=== PATIENT | female | born 1975 | race Caucasian/White ===

== ENCOUNTER → 2021-08-09 | Outpatient (CLI) | payer MEDICAID ==
[2021-08-09 09:29] LABS: POTASSIUM 4.4 MMOL/L (3.6-5.0)
[2021-08-09 09:30] LABS: BILIRUBIN,TOTAL 0.4 MG/DL (0.1-1.0); CALCIUM 9.2 MG/DL (8.5-10.1); CREATININE SERUM 0.77 MG/DL (0.60-1.30); TOTAL PROTEIN 7.4 GM/DL (6.4-8.2)
[2021-08-09 09:31] LABS: ALBUMIN 4.5 GM/DL (3.2-4.5)
== END ==
LOC: LAB FS 08:12
PROVIDERS: ATTEND Registered Nurse Emergency
DX: Z00.00 Encounter for general adult medical examination without abnormal findings (principal); R20.2 Paresthesia of skin
CPT/HCPCS: 36415; 80053; 80061; 82607; 82746; 84443

== ENCOUNTER → 2021-08-29 | Outpatient (CLI) | payer MEDICAID | LOC: LABNPT 15:05 | PROVIDERS: ATTEND Registered Nurse Emergency | DX: L02.214 Cutaneous abscess of groin (principal) | CPT/HCPCS: 87070; 87077; 87186; 87205 ==

== ENCOUNTER 2021-10-29 13:23 | Emergency (ER) | payer MEDICAID ==
[~2021-10-29] VITALS: Ht 162.6 cm; Wt 81.6 kg
--- NOTE | 2021-10-29 13:53 | ED General ---
General Chief Complaint: Dizziness/Syncope Stated Complaint: DIZZINESS Source of Information: Patient Exam Limitations: No Limitations (NAYELI TOBIAS APRN) History of Present Illness Date Seen by Provider: Oct 29, 2021 Time Seen by Provider: 13:51 Initial Comments To ER with dizziness and tightness in her chest. She does not feel anxious but she states that her chest does feel anxious. Symptoms began this morning upon awakening. She just moved here and works for [employer]. She thought this might be hypertension or hypoglycemia related. She left work to go eat lunch and after eating she still felt the same. She went to urgent care who did not accept her insurance and wanted $125 to be seen. She subsequently came here to the emergency room. Timing/Duration: 1-2 Days Severity: Moderate Associated Systoms: Denies Symptoms (NAYELI TOBIAS APRN) Allergies and Home Medications Patient Home Medication List Home Medication List Reviewed: Yes (NAYELI TOBIAS APRN) Review of Systems Review of Systems Constitutional: see HPI EENTM: see HPI Respiratory: no symptoms reported Cardiovascular: no symptoms reported Genitourinary: no symptoms reported Musculoskeletal: no symptoms reported Skin: no symptoms reported Psychiatric/Neurological: No Symptoms Reported Hematologic/Lymphatic: No Symptoms Reported Immunological/Allergic: no symptoms reported (NAYELI TOBIAS APRN) Physical Exam Vital Signs Vital Signs - First Documented 10/29/21 10/29/21 13:37 15:01 Temp 36.9 Pulse 93 Resp 19 B/P (MAP) 143/94 (110) Pulse Ox 100 O2 Delivery Room Air (MARYCRUZ ESPINOSA MD) Vital Signs Capillary Refill : (NAYELI TOBIAS APRN) Height, Weight, BMI Height: '" Weight: lbs. oz. kg; BMI Method: General Appearance: No Apparent Distress, WD/WN Eyes: Bilateral Eye Normal Inspection, Bilateral Eye PERRL, Bilateral Eye EOMI HEENT: PERRL/EOMI, TMs Normal Neck: Full Range of Motion, Normal Inspection Respiratory: No Accessory Muscle Use, No Respiratory Distress Cardiovascular: Regular Rate, Rhythm, Normal Peripheral Pulses Gastrointestinal: Normal Bowel Sounds, Non Tender, Soft Extremity: Normal Capillary Refill, Normal Inspection Neurologic/Psychiatric: Alert, Oriented x3 Skin: Normal Color, Warm/Dry (NAYELI TOBIAS APRN) Progress/Results/Core Measures Suspected Sepsis SIRS Temperature: Pulse: Respiratory Rate: Laboratory Tests 10/29/21 13:47: White Blood Count 7.2 Blood Pressure / Mean: Laboratory Tests 10/29/21 13:47: Creatinine 0.76, INR Comment 0.9, Platelet Count 222, Total Bilirubin 0.5 (NAYELI TOBIAS APRN) Results/Orders Lab Results Laboratory Tests Test 10/29/21 13:47 Range/Units White Blood Count 7.2 4.3-11.0 10^3/uL Red Blood Count 4.79 3.80-5.11 10^6/uL Hemoglobin 15.2 11.5-16.0 g/dL Hematocrit 45 35-52 % Mean Corpuscular Volume 94 80-99 fL Mean Corpuscular Hemoglobin 32 25-34 pg Mean Corpuscular Hemoglobin Concent 34 32-36 g/dL Red Cell Distribution Width 12.2 10.0-14.5 % Platelet Count 222 130-400 10^3/uL Mean Platelet Volume 10.5 9.0-12.2 fL Immature Granulocyte % (Auto) 0 % Neutrophils (%) (Auto) 68 42-75 % Lymphocytes (%) (Auto) 25 12-44 % Monocytes (%) (Auto) 5 0-12 % Eosinophils (%) (Auto) 1 0-10 % Basophils (%) (Auto) 1 0-10 % Neutrophils # (Auto) 4.9 1.8-7.8 10^3/uL Lymphocytes # (Auto) 1.8 1.0-4.0 10^3/uL Monocytes # (Auto) 0.4 0.0-1.0 10^3/uL Eosinophils # (Auto) 0.1 0.0-0.3 10^3/uL Basophils # (Auto) 0.0 0.0-0.1 10^3/uL Immature Granulocyte # (Auto) 0.0 0.0-0.1 10^3/uL Prothrombin Time 12.4 12.2-14.7 SEC INR Comment 0.9 0.8-1.4 Activated Partial Thromboplast Time 30 24-35 SEC D-Dimer 0.30 0.00-0.49 UG/ML Sodium Level 139 135-145 MMOL/L Potassium Level 3.6 3.6-5.0 MMOL/L Chloride Level 109 H 98-107 MMOL/L Carbon Dioxide Level 22 21-32 MMOL/L Anion Gap 8 5-14 MMOL/L Blood Urea Nitrogen 15 7-18 MG/DL Creatinine 0.76 0.60-1.30 MG/DL Estimat Glomerular Filtration Rate 99 BUN/Creatinine Ratio 20 Glucose Level 122 H 70-105 MG/DL Calcium Level 8.8 8.5-10.1 MG/DL Corrected Calcium 8.7 8.5-10.1 MG/DL Magnesium Level 2.0 1.6-2.4 MG/DL Total Bilirubin 0.5 0.1-1.0 MG/DL Aspartate Amino Transf (AST/SGOT) 13 5-34 U/L Alanine Aminotransferase (ALT/SGPT) 12 0-55 U/L Alkaline Phosphatase 76 40-136 U/L Myoglobin 20.7 10.0-92.0 NG/ML Troponin I < 0.028 <0.028 NG/ML B-Type Natriuretic Peptide < 10.0 <100.0 PG/ML Total Protein 7.5 6.4-8.2 GM/DL Albumin 4.1 3.2-4.5 GM/DL (MARYCRUZ ESPINOSA MD) Vital Signs/I&O 10/29/21 10/29/21 13:37 15:01 Temp 36.9 Pulse 93 80 Resp 19 17 B/P (MAP) 143/94 (110) 131/74 Pulse Ox 100 O2 Delivery Room Air Room Air (MARYCRUZ ESPINOSA MD) Vital Signs/I&O Capillary Refill : (NAYELI TOBIAS APRN) Departure Communication (Admissions) [id number]-she is now tearful, states that her boss is calling to figure out when she will be back to work. She just got a new job and she is liking it. She is new to the area. Despite no history of anxiety and reporting that she does not feel anxious she certainly appears anxious. I did offer her something to help relax and she declined. (NAYELI TOBIAS APRN) Impression Primary Impression: Stress Disposition: 01 HOME, SELF-CARE Condition: Stable Departure-Patient Inst. Decision time for Depature: 14:55 (NAYELI TOBIAS APRN) Referrals: MALENA KRAUS MD (PCP/Family) Primary Care Physician DEMETRIS LAND V DO Patient Instructions: Stress Add. Discharge Instructions: 1. Return to ER for any concerns 2. Follow-up with your doctor next week. All discharge instructions reviewed with patient and/or family. Voiced understanding. ATTENDING PHYSICIAN NOTE: I was physically present as attending physician in the emergency department during the care of this patient, but I was not directly involved in the decision making or delivery of care for this patient. (MARYCRUZ ESPINOSA MD) NAYELI TOBIAS APRN Oct 29, 2021 13:53 MARYCRUZ ESPINOSA MD Oct 29, 2021 19:15
[2021-10-29 13:55] LABS: BASOPHILS % (AUTO) 1 % (0-10); EOSINOPHILS # (AUTO) 0.1 10^3/uL (0.0-0.3); EOSINOPHILS % (AUTO) 1 % (0-10); HEMATOCRIT 45 % (35-52); HEMOGLOBIN 15.2 g/dL (11.5-16.0); LYMPHOCYTES # (AUTO) 1.8 10^3/uL (1.0-4.0); LYMPHOCYTES % (AUTO) 25 % (12-44); MEAN CORPUSCULAR HEMOGLOBIN 32 pg (25-34); MEAN CORPUSCULAR HGB CONC 34 g/dL (32-36); MEAN CORPUSCULAR VOLUME 94 fL (80-99); MEAN PLATELET VOLUME 10.5 fL (9.0-12.2); MONOCYTES # (AUTO) 0.4 10^3/uL (0.0-1.0); MONOCYTES % (AUTO) 5 % (0-12); NEUTROPHILS # (AUTO) 4.9 10^3/uL (1.8-7.8); NEUTROPHILS % (AUTO) 68 % (42-75); PLATELET COUNT 222 10^3/uL (130-400); WHITE BLOOD COUNT 7.2 10^3/uL (4.3-11.0)
[2021-10-29 14:14] LABS: INR 0.9 (0.8-1.4); PROTHROMBIN TIME PATIENT 12.4 SEC (12.2-14.7)
--- NOTE | 2021-10-29 14:18 | Diagnostic Imaging Report ---
EXAMINATION: Portable erect AP chest at 02:08 p.m. INDICATION: Chest pain. COMPARISON: None. FINDINGS: The heart size is within normal limits. The lungs are clear. There is no evidence for failure, pneumonia or for a pleural effusion. The mediastinum is not widened. The osseous structures are intact. IMPRESSION: There is no evidence for active disease. Dictated by: Dictated on workstation # [id number]
[2021-10-29 14:43] LABS: ALBUMIN 4.1 GM/DL (3.2-4.5); BILIRUBIN,TOTAL 0.5 MG/DL (0.1-1.0); CALCIUM 8.8 MG/DL (8.5-10.1); CREATININE SERUM 0.76 MG/DL (0.60-1.30); POTASSIUM 3.6 MMOL/L (3.6-5.0); TOTAL PROTEIN 7.5 GM/DL (6.4-8.2)
[2021-10-29 15:01] VITALS: BP 131/74
== END 2021-10-29 15:01 | disposition home or self-care (01) ==
LOC: EDUNIT# 13:23 → ER 13:24
DX: F43.9 Reaction to severe stress, unspecified (principal)
CPT/HCPCS: 36415; 71045; 80053; 83735; 83874; 83880; 84484; 85025; 85379; 85610; 85730; 93041

== ENCOUNTER 2021-11-05 12:27 | Emergency (ER) | payer MEDICAID ==
[2021-11-05] MEDS ORDERED: TRM50T PO (15:01)
[2021-11-05] MEDS ORDERED: ONDA4TAB11 PO (15:01)
== END 2021-11-05 12:45 | disposition left against medical advice (07) ==
LOC: EDUNIT# 12:27 → ER 12:29
DX: M54.9 Dorsalgia, unspecified (principal); R51.9 Headache, unspecified; R11.2 Nausea with vomiting, unspecified

== ENCOUNTER 2021-11-05 13:40 | Emergency (ER) | payer MEDICAID ==
[~2021-11-05] VITALS: Ht 162 cm; Wt 87.3 kg
[2021-11-05 13:57] VITALS: BP 126/88
[2021-11-05] MEDS ORDERED: FAMOTIDINE 20MG/2ML IV (PEPCID) IVP ONE (14:00)
[2021-11-05] MEDS ORDERED: ONDANSETRON 4 MG/2 ML (SDV) Z0FRAN IVP ONE (14:00)
[2021-11-05] MEDS ORDERED: NS IV 1000 ML 1,000 ML IV SCH (14:00)
[2021-11-05] MEDS ORDERED: KETOROLAC 30 MG/ML VIAL IVP ONE (14:00)
--- NOTE | 2021-11-05 14:24 | ED Back Pain ---
General Chief Complaint: Head/Cervical Problems Stated Complaint: GEN PAIN; HEADACHE Source of Information: Patient Exam Limitations: No Limitations History of Present Illness Date Seen by Provider: Nov 05, 2021 Time Seen by Provider: 13:50 Initial Comments Patient is a [id number]-year-old female who presents with bilateral flank pain, nausea and vomiting awaking her up this morning. Patient reports diffuse back pain which is not reproducible. She denies urinary frequency urgency dysuria and hematuria. No history of kidney stones. Pain is constant and especially with moving forward. She denies fever chills or sweats. No cough, sore throat, chest pain or shortness of breath. Patient did test positive for influenza A 6 weeks ago. No medications or therapies prior to ED arrival. Previous tubal ligation. Timing/Duration: 4-6 Hours Severity: Moderate Pain/Injury Location: Other Radiation: Other Method of Injury: Other Modifying Factors: Improves With Other Associated Symptoms: other Allergies and Home Medications Allergies Coded Allergies: doxycycline (Verified Allergy, Unknown, 11/05/21) Patient Home Medication List Home Medication List Reviewed: Yes Review of Systems Constitutional: see HPI EENTM: see HPI Respiratory: see HPI Cardiovascular: see HPI Gastrointestinal: see HPI Genitourinary: see HPI Musculoskeletal: see HPI Skin: see HPI Psychiatric/Neurological: See HPI All Other Systems Reviewed Negative Unless Noted: Yes Past Awimmky-Wqpcvb-Kzizvu Hx Patient Social History Tobacco Use?: Yes Tobacco type used: Cigarettes Smoking Status: Current Everyday Smoker Use of E-Cig and/or Vaping dev: No Substance use?: No Alcohol Use?: No Pt feels they are or have been: No Physical Exam Vital Signs Vital Signs - First Documented 11/05/21 13:57 Temp 37.0 Pulse 101 Resp 18 B/P (MAP) 126/88 (101) Pulse Ox 98 O2 Delivery Room Air Capillary Refill : Height, Weight, BMI Height: '" Weight: lbs. oz. kg; 33.00 BMI Method: General Appearance: Anxious, Mild Distress HEENT: PERRL/EOMI, Normal ENT Inspection, Pharynx Normal Neck: Full Range of Motion, Normal Inspection, Non Tender, Supple Cardiovascular: Regular Rate, Rhythm, No Edema Respiratory: Chest Non Tender, Lungs Clear Gastrointestinal: Non Tender, Soft Back: No CVA Tenderness, No Vertebral Tenderness Neurologic/Psychiatric: Alert, Oriented x3, Normal Mood/Affect Skin: Normal Color Lymphatic: No Adenopathy Progress/Results/Core Measures Results/Orders Lab Results Laboratory Tests Test 11/05/21 13:55 11/05/21 14:00 Range/Units White Blood Count 7.7 4.3-11.0 10^3/uL Red Blood Count 4.59 3.80-5.11 10^6/uL Hemoglobin 14.4 11.5-16.0 g/dL Hematocrit 43 35-52 % Mean Corpuscular Volume 94 80-99 fL Mean Corpuscular Hemoglobin 31 25-34 pg Mean Corpuscular Hemoglobin Concent 34 32-36 g/dL Red Cell Distribution Width 12.5 10.0-14.5 % Platelet Count 221 130-400 10^3/uL Mean Platelet Volume 10.6 9.0-12.2 fL Immature Granulocyte % (Auto) 1 % Neutrophils (%) (Auto) 86 H 42-75 % Lymphocytes (%) (Auto) 4 L 12-44 % Monocytes (%) (Auto) 8 0-12 % Eosinophils (%) (Auto) 1 0-10 % Basophils (%) (Auto) 0 0-10 % Neutrophils # (Auto) 6.6 1.8-7.8 X 10^3 Lymphocytes # (Auto) 0.3 L 1.0-4.0 X 10^3 Monocytes # (Auto) 0.6 0.0-1.0 X 10^3 Eosinophils # (Auto) 0.0 0.0-0.3 10^3/uL Basophils # (Auto) 0.0 0.0-0.1 10^3/uL Immature Granulocyte # (Auto) 0.1 0.0-0.1 10^3/uL Neutrophils % (Manual) 76 % Lymphocytes % (Manual) 4 % Monocytes % (Manual) 5 % Eosinophils % (Manual) 1 % Basophils % (Manual) 0 % Myelocytes % 1 % Band Neutrophils 12 % Atypical Lymphocytes 1 % Platelet Estimate NORMAL Blood Morphology Comment NORMAL Sodium Level 141 135-145 MMOL/L Potassium Level 4.0 3.6-5.0 MMOL/L Chloride Level 106 98-107 MMOL/L Carbon Dioxide Level 21 21-32 MMOL/L Anion Gap 14 5-14 MMOL/L Blood Urea Nitrogen 15 7-18 MG/DL Creatinine 0.67 0.60-1.30 MG/DL Estimat Glomerular Filtration Rate 110 BUN/Creatinine Ratio 22 Glucose Level 93 70-105 MG/DL Calcium Level 9.1 8.5-10.1 MG/DL Corrected Calcium 8.7 8.5-10.1 MG/DL Total Bilirubin 0.4 0.1-1.0 MG/DL Aspartate Amino Transf (AST/SGOT) 14 5-34 U/L Alanine Aminotransferase (ALT/SGPT) 11 0-55 U/L Alkaline Phosphatase 86 40-136 U/L Total Protein 7.5 6.4-8.2 GM/DL Albumin 4.5 3.2-4.5 GM/DL Influenza Type A Antigen NEGATIVE NEGATIVE Influenza Type B Antigen NEGATIVE NEGATIVE Urine Color YELLOW Urine Clarity CLEAR Urine pH 7.0 5-9 Urine Specific [place] 1.020 1.016-1.022 Urine Protein NEGATIVE NEGATIVE Urine Glucose (UA) NEGATIVE NEGATIVE Urine Ketones TRACE H NEGATIVE Urine Nitrite NEGATIVE NEGATIVE Urine Bilirubin NEGATIVE NEGATIVE Urine Urobilinogen 0.2 < = 1.0 MG/DL Urine Leukocyte Esterase NEGATIVE NEGATIVE Urine RBC (Auto) NEGATIVE NEGATIVE Urine RBC NONE /HPF Urine WBC 0-2 /HPF Urine Squamous Epithelial Cells 10-25 H /HPF Urine Crystals NONE /LPF Urine Bacteria TRACE /HPF Urine Casts NONE /LPF Urine Mucus MODERATE H /LPF Urine Culture Indicated NO My Orders Orders - SHERRY MONCADA DO Cbc With Automated Diff (11/05/21 13:56) Comprehensive Metabolic Panel (11/05/21 13:56) Urinalysis (11/05/21 13:56) Covid 19 Inhouse Test (11/05/21 13:56) Isolation Central Supply Req (11/05/21 13:56) Ondansetron Injection (Zofran Injectio (11/05/21 14:00) Ketorolac Injection (Toradol Injection) (11/05/21 14:00) Ns Iv 1000 Ml (Sodium Chloride 0.9%) (11/05/21 14:00) Famotidine Injection (Pepcid Injection) (11/05/21 14:00) Influenza A & B Antigens (11/05/21 14:02) Manual Differential (11/05/21 13:55) Medications Given in ED Current Medications Medications Dose Ordered Sig/K[place]winder Route Start Time Stop Time Status Last Admin Dose Admin Famotidine 20 mg ONCE ONCE IVP 11/05/21 14:00 11/05/21 14:02 DC 11/05/21 14:07 20 MG Ketorolac Tromethamine 30 mg ONCE ONCE IVP 11/05/21 14:00 11/05/21 14:02 DC 11/05/21 14:07 30 MG Ondansetron HCl 4 mg ONCE ONCE IVP 11/05/21 14:00 11/05/21 14:02 DC 11/05/21 14:07 4 MG Vital Signs/I&O 11/05/21 13:57 Temp 37.0 Pulse 101 Resp 18 B/P (MAP) 126/88 (101) Pulse Ox 98 O2 Delivery Room Air Blood Pressure Mean: 101 Departure Communication (Admissions) Symptoms significantly improved with treatment. Patient anxious with diffuse myalgias and body aches. Covid testing pending. Recommendations are supportive care watchful waiting and PCP follow-up. Return precautions reviewed. Patient verbalizes understanding and agreement with discharge instructions prior to departure Impression Primary Impression: Myalgia Disposition: 01 HOME, SELF-CARE Condition: Stable Departure-Patient Inst. Decision time for Depature: 14:58 Referrals: MALENA KRAUS MD (PCP/Family) Primary Care Physician Patient Instructions: Acute Pain, Adult (DC) Add. Discharge Instructions: You were evaluated in the emergency department for acute flank pain and nausea. The cause of your symptoms has not been determined but may be related to Covid or another ailment. Your Covid test result is pending. Please take 600 mg of ibuprofen 3 times daily for pain, tramadol for additional relief and Zofran as needed for nausea. Drink clear liquids only for the next 6 to 12 hours then gradually increase to a bland diet as tolerated. Follow-up with your PCP in 2 to 3 days for reevaluation. Return to the ED if new or worsening symptoms. All discharge instructions reviewed with patient and/or family. Voiced understanding. Scripts Ondansetron (Ondansetron Odt) 4 Mg Tab.rapdis 4 MG PO Q6H, #10 TAB Prov: SHERRY MONCADA DO 11/05/21 Tramadol HCl (Tramadol HCl) 50 Mg Tablet 50 MG PO Q6H PRN for PAIN for 3 Days, #16 TAB 0 Refills Prov: SHERRY MONCADA DO 11/05/21 SHERRY MONCADA DO Nov 05, 2021 14:24
[2021-11-05 14:25] LABS: BASOPHILS % (AUTO) 0 % (0-10); EOSINOPHILS % (AUTO) 1 % (0-10); HEMATOCRIT 43 % (35-52); HEMOGLOBIN 14.4 g/dL (11.5-16.0); LYMPHOCYTES # (AUTO) 0.3 X 10^3 (1.0-4.0); LYMPHOCYTES % (AUTO) 4 % (12-44); MEAN CORPUSCULAR HEMOGLOBIN 31 pg (25-34); MEAN CORPUSCULAR HGB CONC 34 g/dL (32-36); MEAN CORPUSCULAR VOLUME 94 fL (80-99); MEAN PLATELET VOLUME 10.6 fL (9.0-12.2); MONOCYTES # (AUTO) 0.6 X 10^3 (0.0-1.0); MONOCYTES % (AUTO) 8 % (0-12); NEUTROPHILS # (AUTO) 6.6 X 10^3 (1.8-7.8); NEUTROPHILS % (AUTO) 86 % (42-75); PLATELET COUNT 221 10^3/uL (130-400); WHITE BLOOD COUNT 7.7 10^3/uL (4.3-11.0)
[2021-11-05 14:29] LABS: BILIRUBIN,TOTAL 0.4 MG/DL (0.1-1.0); CALCIUM 9.1 MG/DL (8.5-10.1); CREATININE SERUM 0.67 MG/DL (0.60-1.30); TOTAL PROTEIN 7.5 GM/DL (6.4-8.2)
[2021-11-05 14:30] LABS: ALBUMIN 4.5 GM/DL (3.2-4.5)
[2021-11-05 14:33] LABS: COLOR,URINE YELLOW
[2021-11-05 14:34] LABS: BACTERIA,URINE TRACE /HPF; BILIRUBIN,URINE NEGATIVE (NEGATIVE); CLARITY,URINE CLEAR; GLUCOSE, URINE (UA) NEGATIVE (NEGATIVE); KETONES,URINE TRACE (NEGATIVE); LEUKOCYTE ESTERASE ,URINE NEGATIVE (NEGATIVE); NITRITE,URINE NEGATIVE (NEGATIVE); PROTEIN,URINE NEGATIVE (NEGATIVE); WBC,URINE 0-2 /HPF
[2021-11-05 14:40] LABS: ATYPICAL LYMPHOCYTES 1 %; BAND NEUTROPHILS 12 %; BASOPHILS % (MANUAL) 0 %; EOSINOPHILS % (MANUAL) 1 %; LYMPHOCYTES % (MANUAL) 4 %; MONOCYTES % (MANUAL) 5 %; MYELOCYTES % 1 %; NEUTROPHILS % (MANUAL) 76 %; PLATELET ESTIMATE NORMAL; RBC MORPH NORMAL
[2021-11-05] MEDS ORDERED: ONDA4TAB11 PO (15:01)
[2021-11-05] MEDS ORDERED: TRM50T PO (15:01)
== END 2021-11-05 15:30 | disposition home or self-care (01) ==
LOC: EDUNIT# 13:40 → ER FS 13:41
DX: U07.1 COVID-19 (principal); M79.10 Myalgia, unspecified site; F17.210 Nicotine dependence, cigarettes, uncomplicated
CPT/HCPCS: 36415; 80053; 81000; 85007; 85027; 87635; 87804

== ENCOUNTER 2021-11-07 00:58 | Emergency (ER) | payer MEDICAID ==
[~2021-11-07] VITALS: Ht 162 cm; Wt 81.0 kg
[~2021-11-07 00:58] MED LIST: ONDA4TAB11 PO; TRM50T PO
[2021-11-07] MEDS ORDERED: LORazepam INJ 2 MG/ML (ATIVAN) VIAL IVP STA (01:22)
[2021-11-07] MEDS ORDERED: KETOROLAC 30 MG/ML VIAL IVP STA (01:22)
[2021-11-07] MEDS ORDERED: ORPHENADRINE 60 MG/2 ML (NORFLEX) AMP (ED ONLY) IVP STA (01:22)
--- NOTE | 2021-11-07 01:29 | ED General ---
General Chief Complaint: Back Problems Stated Complaint: BACK PAIN/COVID+ Source of Information: Patient, Old Records History of Present Illness Date Seen by Provider: Nov 07, 2021 Time Seen by Provider: 01:01 Initial Comments 46-year-old female presenting with complaints of pain in her back wrapping around her chest. She states it feels like her muscles are "in labor". She has had chest pains and tightness since last week when she was seen in the [place] ED on and then this week on Nov 05 in ED. She had a cardiac work- up on the first visit in [place] and had a general work-up including swab for influenza and COVID on the . Her Covid result came back positive and she was notified of those results on Thursday. She has continued to have pain in her back and chest wall. She denies having any significant cough. She has been very anxious and she is hyperventilating on arrival to the emergency department. She is sobbing and tearful saying that she feels like she is going to and that she cannot tolerate the pain. She had been prescribed tramadol and Zofran when she was seen on the . She states that she has been taking those medicines but they were not helping. She did drive herself to the ED tonight but states that she could call somebody to get a ride home. Timing/Duration: 1 Week Severity: Severe Modifying Factors: worse with Movement Associated Systoms: Chest Pain (diffuse pains in her back, ribs, chest wall), Cough (mild); No Diaphoresis, No Fever/Chills; Loss of Appetite, Malaise; No N ausea/Vomiting, No Rash, No Seizure; Shortness of Air; No Syncope; Weakness Allergies and Home Medications Allergies Coded Allergies: doxycycline (Verified Allergy, Unknown, 11/05/21) Patient Home Medication List Home Medication List Reviewed: Yes Hydroxyzine HCl (Hydroxyzine HCl) 25 Mg Tablet, 25 MG PO TID PRN for ANXIETY Prescribed by: ANTIONE PALOMINO on 11/07/21315 Ibuprofen (Ibuprofen) 800 Mg Tablet, 800 MG PO Q8H PRN for PAIN Prescribed by: ANTIONE PALOMINO on 11/07/21315 Methocarbamol (Methocarbamol) 750 Mg Tablet, 750 MG PO Q6H PRN for back pain/muscle spasm Prescribed by: ANTIONE PALOMINO on 11/07/21 0316 Ondansetron (Ondansetron Odt) 4 Mg Tab.rapdis, 4 MG PO Q6H Prescribed by: SHERRY MONCADA on 11/05/21 1501 Tramadol HCl (Tramadol HCl) 50 Mg Tablet, 50 MG PO Q6H PRN for PAIN Prescribed by: SHERRY MONCADA on 11/05/21 1501 Review of Systems Review of Systems Constitutional: chills, malaise, weakness EENTM: nose congestion Respiratory: see HPI, cough (mild) Cardiovascular: see HPI Gastrointestinal: see HPI Genitourinary: No dysuria Musculoskeletal: muscle pain ("feels like my muscles in back and chest are in labor"), neck pain (chest and back pain radiates to neck) Skin: No change in color, No rash Psychiatric/Neurological: Anxiety, Weakness (general) Hematologic/Lymphatic: Denies Blood Clots Past Tkayqul-Mupine-Nkcbmw Hx Patient Social History Tobacco Use?: Yes Tobacco type used: Cigarettes Smoking Status: Current Everyday Smoker Use of E-Cig and/or Vaping dev: No Substance use?: No Alcohol Use?: No Pt feels they are or have been: No Past Medical History Surgeries: Yes Orthopedic (Lumbar spine) Respiratory: No Cardiac: No Neurological: No Genitourinary: No Gastrointestinal: No Musculoskeletal: No Endocrine: No HEENT: No Cancer: No Psychosocial: No Physical Exam Vital Signs Vital Signs - First Documented 11/07/21 11/07/21 01:04 02:00 Temp 36.4 Pulse 91 Resp 18 B/P (MAP) 135/83 (100) Pulse Ox 96 O2 Delivery Room Air Capillary Refill : Height, Weight, BMI Height: '" Weight: lbs. oz. kg; 33.00 BMI Method: General Appearance: WD/WN, Anxious, Other (hyperventilating and tearful) HEENT: PERRL/EOMI, Pharynx Normal, Moist Mucous Membranes Neck: Full Range of Motion, Normal Inspection, Non Tender, Supple Respiratory: Lungs Clear, Normal Breath Sounds, No Accessory Muscle Use, No Respiratory Distress; No Rhonci, No Stridor, No Wheezing; Other (tender to palpation of chest wall) Cardiovascular: Regular Rate, Rhythm, No Murmur, Normal Peripheral Pulses Gastrointestinal: Normal Bowel Sounds, No Pulsatile Mass, Non Tender, Soft Back: No CVA Tenderness, No Vertebral Tenderness Extremity: Normal Capillary Refill, Normal Inspection, No Pedal Edema Neurologic/Psychiatric: Alert, Oriented x3, Other (anxious and tearful) Skin: Normal Color, Warm/Dry Progress/Results/Core Measures Suspected Sepsis SIRS Temperature: Pulse: Respiratory Rate: Laboratory Tests 11/07/21 01:33: White Blood Count 2.4L Blood Pressure / Mean: Laboratory Tests 11/07/21 01:33: Creatinine 0.76, INR Comment 0.9, Platelet Count 192, Total Bilirubin 0.2 Results/Orders Lab Results Laboratory Tests Test 11/07/21 01:33 Range/Units White Blood Count 2.4 L 4.3-11.0 10^3/uL Red Blood Count 4.69 3.80-5.11 10^6/uL Hemoglobin 14.8 11.5-16.0 g/dL Hematocrit 43 35-52 % Mean Corpuscular Volume 92 80-99 fL Mean Corpuscular Hemoglobin 32 25-34 pg Mean Corpuscular Hemoglobin Concent 34 32-36 g/dL Red Cell Distribution Width 12.5 10.0-14.5 % Platelet Count 192 130-400 10^3/uL Mean Platelet Volume 11.3 9.0-12.2 fL Immature Granulocyte % (Auto) 0 % Neutrophils (%) (Auto) 53 42-75 % Lymphocytes (%) (Auto) 33 12-44 % Monocytes (%) (Auto) 13 H 0-12 % Eosinophils (%) (Auto) 0 0-10 % Basophils (%) (Auto) 0 0-10 % Neutrophils # (Auto) 1.3 L 1.8-7.8 X 10^3 Lymphocytes # (Auto) 0.8 L 1.0-4.0 X 10^3 Monocytes # (Auto) 0.3 0.0-1.0 X 10^3 Eosinophils # (Auto) 0.0 0.0-0.3 10^3/uL Basophils # (Auto) 0.0 0.0-0.1 10^3/uL Immature Granulocyte # (Auto) 0.0 0.0-0.1 10^3/uL Prothrombin Time 12.3 12.2-14.7 SEC INR Comment 0.9 0.8-1.4 Activated Partial Thromboplast Time 31 24-35 SEC D-Dimer 0.23 0.00-0.49 UG/ML Urine Color YELLOW Urine Clarity CLOUDY H Urine pH 6.0 5-9 Urine Specific [place] >=1.030 1.016-1.022 Urine Protein NEGATIVE NEGATIVE Urine Glucose (UA) NEGATIVE NEGATIVE Urine Ketones NEGATIVE NEGATIVE Urine Nitrite NEGATIVE NEGATIVE Urine Bilirubin NEGATIVE NEGATIVE Urine Urobilinogen 0.2 < = 1.0 MG/DL Urine Leukocyte Esterase NEGATIVE NEGATIVE Urine RBC (Auto) NEGATIVE NEGATIVE Urine RBC NONE /HPF Urine WBC NONE /HPF Urine Squamous Epithelial Cells NONE /HPF Urine Crystals NONE /LPF Urine Bacteria NEGATIVE /HPF Urine Casts NONE /LPF Urine Mucus NEGATIVE /LPF Urine Culture Indicated NO Sodium Level 137 135-145 MMOL/L Potassium Level 3.7 3.6-5.0 MMOL/L Chloride Level 102 98-107 MMOL/L Carbon Dioxide Level 21 21-32 MMOL/L Anion Gap 14 5-14 MMOL/L Blood Urea Nitrogen 13 7-18 MG/DL Creatinine 0.76 0.60-1.30 MG/DL Estimat Glomerular Filtration Rate 99 BUN/Creatinine Ratio 17 Glucose Level 110 H 70-105 MG/DL Calcium Level 9.1 8.5-10.1 MG/DL Corrected Calcium 8.8 8.5-10.1 MG/DL Total Bilirubin 0.2 0.1-1.0 MG/DL Aspartate Amino Transf (AST/SGOT) 24 5-34 U/L Alanine Aminotransferase (ALT/SGPT) 19 0-55 U/L Alkaline Phosphatase 85 40-136 U/L Troponin I < 0.30 <0.30 NG/ML C-Reactive Protein 0.30 <0.50 MG/DL Total Protein 7.5 6.4-8.2 GM/DL Albumin 4.4 3.2-4.5 GM/DL Urine Opiates Screen NEGATIVE NEGATIVE Urine Oxycodone Screen NEGATIVE NEGATIVE Urine Methadone Screen NEGATIVE NEGATIVE Urine Propoxyphene Screen NEGATIVE NEGATIVE Urine Barbiturates Screen NEGATIVE NEGATIVE Ur Tricyclic Antidepressants Screen NEGATIVE NEGATIVE Urine Phencyclidine Screen NEGATIVE NEGATIVE Urine Amphetamines Screen NEGATIVE NEGATIVE Urine Methamphetamines Screen NEGATIVE NEGATIVE Urine Benzodiazepines Screen NEGATIVE NEGATIVE Urine Cocaine Screen NEGATIVE NEGATIVE Urine Cannabinoids Screen POSITIVE H NEGATIVE My Orders Orders - ANTIONE PALOMINO MD Monitor-Rhythm Ecg Trace Only (11/07/21 01:20) Ed Iv/Invasive Line Start (11/07/21 01:20) Cbc With Automated Diff (11/07/21 01:20) Comprehensive Metabolic Panel (11/07/21 01:20) Crp Fs (11/07/21 01:20) Troponin I Fs (11/07/21 01:20) Protime With Inr (11/07/21 01:20) Partial Thromboplastin Time (11/07/21 01:20) Ns Iv 1000 Ml (Sodium Chloride 0.9%) (11/07/21 01:30) Ua Culture If Indicated (11/07/21 01:20) Drug Screen Stat (Urine) (11/07/21 01:20) Ketorolac Injection (Toradol Injection) (11/07/21 01:22) Lorazepam Injection (Ativan Injection) (11/07/21:22) Orphenadrine Inj (Ed Only) (Norflex Inje (11/07/21 01:22) Fibrin Degradation Products (11/07/21 01:20) Ns Iv 1000 Ml (Sodium Chloride 0.9%) (11/07/21 02:59) Ondansetron Injection (Zofran Injectio (11/07/21 02:59) Vital Signs/I&O 11/07/21 11/07/21 11/07/21 11/07/21 01:04 02:00 03:00 03:50 Temp 36.4 Pulse 91 65 60 63 Resp 18 17 15 B/P (MAP) 135/83 (100) 113/60 95/63 103/53 Pulse Ox 96 96 95 95 O2 Delivery Room Air Room Air Room Air Room Air Capillary Refill : Progress Note #1: Progress Note Upon review of her 2 previous visits of the last week she had similar symptoms of being tearful and anxious. She tested positive for Covid on her most recent visit on the . She was notified of those results on the . Now she presents overnight because of increased pain and she is hyperventilating and sobbing. She states that she cannot take the pain anymore and that the pain medicine she was prescribed was not helping. Will repeat testing to see if there is any change in her electrolytes are elevation in her D-dimer to indicate that there is any new process going on. Her vital signs look good with oxygen saturation of 98 to 100% on room air. Her heart rate is in the 88 to 95 bpm range. She has a normal blood pressure. Will order Toradol for chest pain since it had seemed to help Thursday. IVF for hydration. Ativan for anxiety and hyperventilating. Norflex for muscle spasm. Progress Note #2: Progress Note Labs show her white blood cell count is slightly low at 2.4, consistent with viral infection. Her chemistry panel appears stable without acute significant abnormality. She does have elevated specific gravity on her urine to indicate dehydration. Her coags and D-dimer are normal and not elevated. She has not improved symptoms with treatment in the ED. She is able to rest and not have the pain in her chest any longer. Reviewed results with the patient and she was requesting something different for pain for home. Advised that we could try to add an anti-inflammatory medicine and muscle relaxer similar to what we did here. Encourage fluids and hydration as well. Will repeat another bolus of normal saline and she reported feeling a little nauseated and woozy so we will give a dose of Zofran. Anticipate discharge to home after this infuses. Patient states that she has a friend named Caprice that she could call to get a ride. She had told me this before I wrote for any of her medications to be given here in the ED. When I told her that she would not be able to drive herself home she stated that if she could not get a hold of her friend Caprice that she would sleep in her car. Progress Note #3: Progress Note Patient continued to be improved after repeat fluids and zofran. she was much more calm for the rest of her stay as well. Will discharge on hydroxyzine for anxiety. Methocarbamol 750 mg po q6h prn chest wall pain/muscle spasms, Ibuprofen 800 mg po q8h prn pain/inflammation. Encouraged to drink more fluids and try to remain better hydrated to help with her muscle pains. Follow up with clinic for continued concerns. Departure Impression Primary Impression: Myalgia Additional Impressions: COVID-19 virus infection Anxiety Dehydration Disposition: 01 HOME, SELF-CARE Condition: Improved Departure-Patient Inst. Decision time for Depature: 03:16 Referrals: MALENA KRAUS MD (PCP/Family) Primary Care Physician Patient Instructions: Anxiety, Adult ED, COVID-19 ED, Dehydration, Adult ED, Muscle and Bone Pain (DC) Add. Discharge Instructions: Stay well-hydrated and get plenty of fluids for helping flush out inflammation. Try to get plenty of rest to help your body recover and heal. Use the muscle relaxer and anti-inflammatory medicine to help with the muscle pain in your chest and back. The dehydration and virus itself can contribute to increased pain in the muscles so staying hydrated and using the anti-inflammatories will help to counteract this. If continued symptoms are not improving check back with the clinic and your regular provider. All discharge instructions reviewed with patient and/or family. Voiced understanding. Scripts Hydroxyzine HCl (Hydroxyzine HCl) 25 Mg Tablet 25 MG PO TID PRN for ANXIETY for 7 Days, #20 TAB 0 Refills Prov: ANTIONE PALOMINO MD 11/07/21 Ibuprofen (Ibuprofen) 800 Mg Tablet 800 MG PO Q8H PRN for PAIN for 10 Days, #30 TAB 0 Refills Prov: ANTIONE PALOMINO MD 11/07/21 Methocarbamol (Methocarbamol) 750 Mg Tablet 750 MG PO Q6H PRN for back pain/muscle spasm for 7 Days, #28 TAB 0 Refills Prov: ANTIONE PALOMINO MD 11/07/21 ANTIONE PALOMINO MD Nov 07, 2021 01:29
[2021-11-07] MEDS ORDERED: NS IV 1000 ML 1,000 ML IV SCH (01:30)
[2021-11-07 01:56] LABS: WHITE BLOOD COUNT 2.4 10^3/uL (4.3-11.0)
[2021-11-07 01:57] LABS: BASOPHILS % (AUTO) 0 % (0-10); EOSINOPHILS % (AUTO) 0 % (0-10); HEMATOCRIT 43 % (35-52); HEMOGLOBIN 14.8 g/dL (11.5-16.0); LYMPHOCYTES # (AUTO) 0.8 X 10^3 (1.0-4.0); LYMPHOCYTES % (AUTO) 33 % (12-44); MEAN CORPUSCULAR HEMOGLOBIN 32 pg (25-34); MEAN CORPUSCULAR HGB CONC 34 g/dL (32-36); MEAN CORPUSCULAR VOLUME 92 fL (80-99); MEAN PLATELET VOLUME 11.3 fL (9.0-12.2); MONOCYTES # (AUTO) 0.3 X 10^3 (0.0-1.0); MONOCYTES % (AUTO) 13 % (0-12); NEUTROPHILS # (AUTO) 1.3 X 10^3 (1.8-7.8); NEUTROPHILS % (AUTO) 53 % (42-75); PLATELET COUNT 192 10^3/uL (130-400)
[2021-11-07 01:59] LABS: BACTERIA,URINE NEGATIVE /HPF; BILIRUBIN,URINE NEGATIVE (NEGATIVE); CLARITY,URINE CLOUDY; COLOR,URINE YELLOW; GLUCOSE, URINE (UA) NEGATIVE (NEGATIVE); KETONES,URINE NEGATIVE (NEGATIVE); LEUKOCYTE ESTERASE ,URINE NEGATIVE (NEGATIVE); NITRITE,URINE NEGATIVE (NEGATIVE); PROTEIN,URINE NEGATIVE (NEGATIVE)
[2021-11-07 02:06] LABS: AMPHETAMINE SCREEN, URINE NEGATIVE (NEGATIVE); BARBITURATE SCREEN URINE NEGATIVE (NEGATIVE); BENZODIAZEPINES SCREEN URINE NEGATIVE (NEGATIVE); CANNABINOID SCREEN, URINE POSITIVE (NEGATIVE); COCAINE SCREEN URINE NEGATIVE (NEGATIVE); METHADONE STAT NEGATIVE (NEGATIVE); METHAMPHETAMINE SCREEN URINE S NEGATIVE (NEGATIVE); OPIATE SCREEN URINE NEGATIVE (NEGATIVE); OXYCODONE STAT NEGATIVE (NEGATIVE); PROPOXYPHENE STAT NEGATIVE (NEGATIVE); TRICYCLIC ANTIDEPRESSANTS SCRE NEGATIVE (NEGATIVE)
[2021-11-07 02:20] LABS: ALANINE AMINOTRANSFERASE 19 U/L (0-55); ALKALINE PHOSPHATASE 85 U/L (40-136); BILIRUBIN,TOTAL 0.2 MG/DL (0.1-1.0); BUN/CREATININE RATIO 17; CALCIUM 9.1 MG/DL (8.5-10.1); CARBON DIOXIDE 21 MMOL/L (21-32); CHLORIDE 102 MMOL/L (98-107); CREATININE SERUM 0.76 MG/DL (0.60-1.30); GFR ESTIMATED 99; GLUCOSE 110 MG/DL (70-105); POTASSIUM 3.7 MMOL/L (3.6-5.0); SODIUM 137 MMOL/L (135-145); TOTAL PROTEIN 7.5 GM/DL (6.4-8.2)
[2021-11-07 02:21] LABS: ALBUMIN 4.4 GM/DL (3.2-4.5)
[2021-11-07 02:45] LABS: FIBRIN DEGRADATION PRODUCTS 0.23 UG/ML (0.00-0.49); INR 0.9 (0.8-1.4); PROTHROMBIN TIME PATIENT 12.3 SEC (12.2-14.7)
[2021-11-07] MEDS ORDERED: ONDANSETRON 4 MG/2 ML (SDV) Z0FRAN IVP STA (02:59)
[2021-11-07] MEDS ORDERED: NS IV 1000 ML 1,000 ML IV STA (02:59)
[2021-11-07] MEDS ORDERED: HYDR-700 PO (03:16)
[2021-11-07] MEDS ORDERED: IBUP-1780 PO (03:16)
[2021-11-07] MEDS ORDERED: METH-732 PO (03:16)
[2021-11-07 03:50] VITALS: BP 103/53
== END 2021-11-07 03:55 | disposition home or self-care (01) ==
LOC: EDUNIT# 00:58 → ER FS 01:01
DX: U07.1 COVID-19 (principal); M79.10 Myalgia, unspecified site; F41.9 Anxiety disorder, unspecified; E86.0 Dehydration; R06.4 Hyperventilation; F17.210 Nicotine dependence, cigarettes, uncomplicated
CPT/HCPCS: 36415; 80053; 80306; 81000; 84484; 85025; 85379; 85610; 85730; 86141; 93041

== ENCOUNTER → 2021-12-13 | Outpatient (CLI) | payer MEDICAID ==
[~2021-12-13] MED LIST changes: +HYDR-700 PO; +IBUP-1780 PO; +METH-732 PO
[2021-12-13 15:03] LABS: BASOPHILS # (AUTO) 0.1 10^3/uL (0.0-0.1); BASOPHILS % (AUTO) 1 % (0-10); EOSINOPHILS # (AUTO) 0.1 10^3/uL (0.0-0.3); EOSINOPHILS % (AUTO) 2 % (0-10); HEMATOCRIT 42 % (35-52); HEMOGLOBIN 13.9 g/dL (11.5-16.0); LYMPHOCYTES # (AUTO) 1.5 10^3/uL (1.0-4.0); LYMPHOCYTES % (AUTO) 26 % (12-44); MEAN CORPUSCULAR HEMOGLOBIN 31 pg (25-34); MEAN CORPUSCULAR HGB CONC 33 g/dL (32-36); MEAN CORPUSCULAR VOLUME 95 fL (80-99); MEAN PLATELET VOLUME 10.5 fL (9.0-12.2); MONOCYTES # (AUTO) 0.4 10^3/uL (0.0-1.0); MONOCYTES % (AUTO) 6 % (0-12); NEUTROPHILS # (AUTO) 3.9 10^3/uL (1.8-7.8); NEUTROPHILS % (AUTO) 66 % (42-75); PLATELET COUNT 221 10^3/uL (130-400)
[2021-12-13 15:25] LABS: ALBUMIN 4.1 GM/DL (3.2-4.5); BILIRUBIN,TOTAL 0.3 MG/DL (0.1-1.0); CALCIUM 8.5 MG/DL (8.5-10.1); CREATININE SERUM 0.67 MG/DL (0.60-1.30); POTASSIUM 4.7 MMOL/L (3.6-5.0)
== END ==
LOC: LAB FS 14:41
PROVIDERS: ATTEND Registered Nurse Emergency
DX: R50.9 Fever, unspecified (principal); R73.9 Hyperglycemia, unspecified
CPT/HCPCS: 36415; 80053; 83036; 85025

== ENCOUNTER 2022-05-12 03:23 | Emergency (ER) | payer MEDICAID ==
[2022-05-12] MEDS ORDERED: FAMOTIDINE 20 MG (PEPCID) TABLET PO STA (03:29)
[2022-05-12] MEDS ORDERED: LORazepam 0.5 MG (ATIVAN) TABLET PO STA (03:29)
[2022-05-12] MEDS ORDERED: LIDOCAINE 2% VISCOUS 15 ML UDC PO ONE (03:30)
[2022-05-12] MEDS ORDERED: ASPIRIN 81 MG CHEW (CHILDREN'S ASA) PO ONE (03:30)
[2022-05-12] MEDS ORDERED: ANTACID SUSP 30 ML UDC (MYLANTA) PO ONE (03:30)
--- NOTE | 2022-05-12 03:32 | ED Chest Pain ---
General Stated Complaint: CHEST PAIN Source: patient Exam Limitations: no limitations History of Present Illness Date Seen by Provider: May 12, 2022 Time Seen by Provider: 03:27 Initial Comments 47-year-old female with no pertinent past medical history coming in due to chest pain going through to her back. The pain started over an hour prior to arrival, is moderate, constant, sharp. Has had pain like this before, but denies any cardiac history. Denies any prior history of DVT or PE, does not take any hormones, no leg swelling or pain, no hemoptysis or cough, no shortness of breath, no recent surgery, no fever, abdominal pain, weakness, numbness, or any other concerns. Has not taken any medicines for it. Nothing seems to make it better or worse. Allergies and Home Medications Allergies Coded Allergies: doxycycline (Verified Allergy, Unknown, 11/05/21) Patient Home Medication List Home Medication List Reviewed: Yes Hydroxyzine HCl (Hydroxyzine HCl) 25 Mg Tablet, 25 MG PO TID PRN for ANXIETY Prescribed by: ANTIONE PALOMINO on 11/07/21 0316 Ibuprofen (Ibuprofen) 800 Mg Tablet, 800 MG PO Q8H PRN for PAIN Prescribed by: ANTIONE PALOMINO on 11/07/21 0316 Methocarbamol (Methocarbamol) 750 Mg Tablet, 750 MG PO Q6H PRN for back pain/muscle spasm Prescribed by: ANTIONE PALOMINO on 11/07/21 0316 Ondansetron (Ondansetron Odt) 4 Mg Tab.rapdis, 4 MG PO Q6H Prescribed by: SHERRY MONCADA on 11/05/21 1501 Tramadol HCl (Tramadol HCl) 50 Mg Tablet, 50 MG PO Q6H PRN for PAIN Prescribed by: SHERRY MONCADA on 11/05/21 1501 Review of Systems Review of Systems Constitutional: No fever EENTM: No Blurred Vision Respiratory: Denies Cough Cardiovascular: Chest Pain Gastrointestinal: Denies Abdominal Pain Genitourinary: No Symptoms Reported Musculoskeletal: no symptoms reported Skin: no symptoms reported Psychiatric/Neurological: No Symptoms Reported Endocrine: No Symptoms Reported Hematologic/Lymphatic: No Symptoms Reported All Other Systems Reviewed Negative Unless Noted: Yes Past Hormrux-Ggcmqs-Ciwnzt Hx Patient Social History Tobacco Use?: Yes Tobacco type used: Cigarettes Substance use?: Yes Substance type: Marijuana Past Medical History Surgeries: Yes Orthopedic Respiratory: No Cardiac: No Neurological: No Genitourinary: No Gastrointestinal: No Musculoskeletal: No Endocrine: No HEENT: No Cancer: No Psychosocial: No Physical Exam Vital Signs Vital Signs - First Documented 05/12/22 03:26 Temp 36.5 Pulse 97 Resp 20 B/P (MAP) 150/97 (114) Pulse Ox 100 O2 Delivery Room Air Capillary Refill : Height, Weight, BMI Height: '" Weight: lbs. oz. kg; 30.00 BMI Method: General Appearance: WD/WN, Anxious HEENT: PERRL/EOMI, Normal ENT Inspection, Pharynx Normal Neck: Full Range of Motion, Normal Inspection, Non Tender, Supple Respiratory: Chest Non Tender, Lungs Clear, Normal Breath Sounds, No Accessory Muscle Use, No Respiratory Distress Cardiovascular: Regular Rate, Rhythm, No Edema, Normal Peripheral Pulses Gastrointestinal: Normal Bowel Sounds, Non Tender, Soft; No Distended, No Guarding Extremity: Normal Capillary Refill, Normal Inspection, Normal Range of Motion, Non Tender, No Calf Tenderness, No Pedal Edema Neurologic/Psychiatric: Alert, No Motor/Sensory Deficits, Normal Mood/Affect Skin: Normal Color, Warm/Dry Lymphatic: No Adenopathy Progress/Results/Core Measures Results/Orders Lab Results Laboratory Tests Test 05/12/22 03:35 Range/Units White Blood Count 7.3 4.3-11.0 10^3/uL Red Blood Count 4.63 3.80-5.11 10^6/uL Hemoglobin 14.8 11.5-16.0 g/dL Hematocrit 43 35-52 % Mean Corpuscular Volume 93 80-99 fL Mean Corpuscular Hemoglobin 32 25-34 pg Mean Corpuscular Hemoglobin Concent 34 32-36 g/dL Red Cell Distribution Width 12.5 10.0-14.5 % Platelet Count 287 130-400 10^3/uL Mean Platelet Volume 10.3 9.0-12.2 fL Immature Granulocyte % (Auto) 0 % Neutrophils (%) (Auto) 60 42-75 % Lymphocytes (%) (Auto) 30 12-44 % Monocytes (%) (Auto) 7 0-12 % Eosinophils (%) (Auto) 1 0-10 % Basophils (%) (Auto) 1 0-10 % Neutrophils # (Auto) 4.3 1.8-7.8 10^3/uL Lymphocytes # (Auto) 2.2 1.0-4.0 10^3/uL Monocytes # (Auto) 0.5 0.0-1.0 10^3/uL Eosinophils # (Auto) 0.1 0.0-0.3 10^3/uL Basophils # (Auto) 0.1 0.0-0.1 10^3/uL Immature Granulocyte # (Auto) 0.0 0.0-0.1 10^3/uL Prothrombin Time 12.0 L 12.2-14.7 SEC INR Comment 0.9 0.8-1.4 Activated Partial Thromboplast Time 28 24-35 SEC Sodium Level 141 135-145 MMOL/L Potassium Level 3.6 3.6-5.0 MMOL/L Chloride Level 106 98-107 MMOL/L Carbon Dioxide Level 21 21-32 MMOL/L Anion Gap 14 5-14 MMOL/L Blood Urea Nitrogen 18 7-18 MG/DL Creatinine 0.71 0.60-1.30 MG/DL Estimat Glomerular Filtration Rate 107 BUN/Creatinine Ratio 25 Glucose Level 96 70-105 MG/DL Calcium Level 9.3 8.5-10.1 MG/DL Corrected Calcium 9.0 8.5-10.1 MG/DL Magnesium Level 2.0 1.6-2.4 MG/DL Total Bilirubin 0.4 0.1-1.0 MG/DL Aspartate Amino Transf (AST/SGOT) 14 5-34 U/L Alanine Aminotransferase (ALT/SGPT) 14 0-55 U/L Alkaline Phosphatase 104 40-136 U/L Troponin I < 0.30 <0.30 NG/ML Total Protein 7.7 6.4-8.2 GM/DL Albumin 4.4 3.2-4.5 GM/DL My Orders Orders - ANNE MARIE ESCOBAR MD Cbc With Automated Diff (05/12/22 03:29) Magnesium (05/12/22 03:29) Chest 1 View Ap/Pa Only (05/12/22 03:29) Ekg Tracing (05/12/22 03:29) Comprehensive Metabolic Panel (05/12/22 03:29) Protime With Inr (05/12/22 03:29) Partial Thromboplastin Time (05/12/22 03:29) O2 (05/12/22 03:29) Monitor-Rhythm Ecg Trace Only (05/12/22 03:29) Aspirin Chewable Tablet (Baby Aspirin Ch (05/12/22 03:30) Ed Iv/Invasive Line Start (05/12/22 03:29) Troponin I Fs (05/12/22 03:29) Lidocaine 2% Viscous 15 Ml (Xylocaine Vi (05/12/22 03:30) Famotidine Tablet (Pepcid Tablet) (05/12/22 03:29) Antacid Suspension (Mylanta Suspension (05/12/22 03:30) Lorazepam Tablet (Ativan Tablet) (05/12/22 03:29) Medications Given in ED Current Medications Medications Dose Ordered Sig/[place] Route Start Time Stop Time Status Last Admin Dose Admin Al Hydrox/Mg Hydrox/Simethicone 30 ml ONCE ONCE PO 05/12/22 03:30 05/12/22 03:32 DC 05/12/22 03:43 30 ML Aspirin 324 mg ONCE ONCE PO 05/12/22 03:30 05/12/22 03:32 DC 05/12/22 03:43 324 MG Lidocaine HCl 15 ml ONCE ONCE PO 05/12/22 03:30 05/12/22 03:32 DC 05/12/22 03:43 15 ML Vital Signs/I&O 05/12/22 03:26 Temp 36.5 Pulse 97 Resp 20 B/P (MAP) 150/97 (114) Pulse Ox 100 O2 Delivery Room Air Progress Progress Note : Progress Note 47-year-old female with above history coming in due to chest pain. ABCs were intact and vitals were stable on presentation. Physical exam reassuring with no focal abnormalities. EKG with no acute ischemic changes. Chest x-ray my interpretation with no acute abnormality. An IV was placed and basic labs were obtained including cardiac biomarkers. These were normal. The patient was given a GI cocktail as well as Ativan as she seemed to have a significant amount of anxiety. Symptoms significantly improved. She is otherwise low risk per [place] criteria for PE and is PERC negative. I believe she is stable for discharge with outpatient follow-up. She was sent home with strict return precautions. Initial ECG Impression Date: May 12, 2022 Initial ECG Impression Time: 03:34 Initial ECG Rate: 87 Initial ECG Rhythm: Normal Sinus Comment Narrow QRS, normal axis, no significant ST changes or T wave abnormalities Diagnostic Imaging Diagonstic Imaging: Xray Plain Films/CT/US/NM/MRI: chest Departure Impression Primary Impression: Chest pain Qualified Codes: R07.82 - Intercostal pain Disposition: 01 HOME, SELF-CARE Condition: Stable Departure-Patient Inst. Decision time for Depature: 04:20 Referrals: MALENA KRAUS MD (PCP/Family) Primary Care Physician MODESTA CLINTON JR, MD Patient Instructions: Chest Pain That Is Not Caused by the Heart (DC) Add. Discharge Instructions: Your work-up is reassuring and everything looks very good. Your labs and your vitals look great. This is likely another cause of chest pain and discomfort that is not deadly. I would recommend taking ibuprofen or Tylenol for discomfort at home. You can also try things such as a heating pad. If things are not improving you can also call the meat molder number listed in this paperwork, Dr. Clinton, and schedule an appointment for an evaluation in the future. Work/School Note: Work Release Form Date Seen in the Emergency Department: May 12, 2022 Return to Work: May 13, 2022 Restrictions: No Restrictions ANNE MARIE ESCOBAR MD May 12, 2022 03:32
[2022-05-12 03:43] LABS: BASOPHILS # (AUTO) 0.1 10^3/uL (0.0-0.1); BASOPHILS % (AUTO) 1 % (0-10); EOSINOPHILS # (AUTO) 0.1 10^3/uL (0.0-0.3); EOSINOPHILS % (AUTO) 1 % (0-10); HEMATOCRIT 43 % (35-52); HEMOGLOBIN 14.8 g/dL (11.5-16.0); LYMPHOCYTES # (AUTO) 2.2 10^3/uL (1.0-4.0); LYMPHOCYTES % (AUTO) 30 % (12-44); MEAN CORPUSCULAR HEMOGLOBIN 32 pg (25-34); MEAN CORPUSCULAR HGB CONC 34 g/dL (32-36); MEAN CORPUSCULAR VOLUME 93 fL (80-99); MEAN PLATELET VOLUME 10.3 fL (9.0-12.2); MONOCYTES # (AUTO) 0.5 10^3/uL (0.0-1.0); MONOCYTES % (AUTO) 7 % (0-12); NEUTROPHILS # (AUTO) 4.3 10^3/uL (1.8-7.8); NEUTROPHILS % (AUTO) 60 % (42-75); PLATELET COUNT 287 10^3/uL (130-400); WHITE BLOOD COUNT 7.3 10^3/uL (4.3-11.0)
[2022-05-12 03:52] LABS: INR 0.9 (0.8-1.4)
[2022-05-12 04:03] LABS: ALBUMIN 4.4 GM/DL (3.2-4.5); BILIRUBIN,TOTAL 0.4 MG/DL (0.1-1.0); CALCIUM 9.3 MG/DL (8.5-10.1); CREATININE SERUM 0.71 MG/DL (0.60-1.30); POTASSIUM 3.6 MMOL/L (3.6-5.0); TOTAL PROTEIN 7.7 GM/DL (6.4-8.2)
[2022-05-12 04:13] VITALS: BP 140/94
--- NOTE | 2022-05-12 06:49 | Diagnostic Imaging Report ---
INDICATION: Chest pain. Comparison is made with prior examination of 10/29/2021. FINDINGS: The heart size, mediastinal configuration, and pulmonary vascularity are within normal limits. There is no pleural effusion, pneumothorax, or pneumonia. The osseous structures are unremarkable. IMPRESSION: No acute cardiopulmonary abnormality. Dictated by: Dictated on workstation # [id number]
== END 2022-05-12 04:28 | disposition home or self-care (01) ==
LOC: EDUNIT# 03:23 → ER FS 03:26
DX: R07.9 Chest pain, unspecified (principal)
CPT/HCPCS: 36415; 71045; 80053; 83735; 84484; 85025; 85610; 85730; 93041

== ENCOUNTER 2022-11-29 22:30 | Emergency (ER) | payer MEDICAID ==
[~2022-11-29] VITALS: Ht 162.5 cm; Wt 100.0 kg
--- NOTE | 2022-11-29 22:49 | ED Lower Extremity ---
General Stated Complaint: LEFT LEG INJURY History of Present Illness Date Seen by Provider: Nov 29, 2022 Time Seen by Provider: 22:35 Initial Comments 47-year-old female is here with complaints of left hip, left knee, left husain pain which began after she fell against a manhole last Thursday. Patient is able to ambulate but is in pain. Denies sensory loss, head strike. Allergies and Home Medications Allergies Coded Allergies: doxycycline (Verified Allergy, Unknown, 11/05/21) Patient Home Medication List Home Medication List Reviewed: Yes Hydroxyzine HCl (Hydroxyzine HCl) 25 Mg Tablet, 25 MG PO TID PRN for ANXIETY Prescribed by: ANTIONE PALOMINO on 11/07/21 0316 Ibuprofen (Ibuprofen) 800 Mg Tablet, 800 MG PO Q8H PRN for PAIN Prescribed by: ANTIONE PALOMINO on 11/07/21 0316 Methocarbamol (Methocarbamol) 750 Mg Tablet, 750 MG PO Q6H PRN for back pain/muscle spasm Prescribed by: ANTIONE PALOMINO on 11/07/21 0316 Ondansetron (Ondansetron Odt) 4 Mg Tab.rapdis, 4 MG PO Q6H Prescribed by: SHERRY MONCADA on 11/05/21 1501 Tramadol HCl (Tramadol HCl) 50 Mg Tablet, 50 MG PO Q6H PRN for PAIN Prescribed by: SHERRY MONCADA on 11/05/21 1501 Review of Systems Constitutional: no symptoms reported EENTM: no symptoms reported Respiratory: no symptoms reported Cardiovascular: no symptoms reported Gastrointestinal: no symptoms reported Musculoskeletal: joint pain, muscle pain Skin: no symptoms reported Psychiatric/Neurological: No Symptoms Reported Past Jroswyd-Clhpee-Khlwvm Hx Past Medical History Surgeries: Yes Orthopedic Respiratory: No Cardiac: No Neurological: No Genitourinary: No Gastrointestinal: No Musculoskeletal: No Endocrine: No HEENT: No Cancer: No Psychosocial: No Physical Exam Vital Signs Capillary Refill : Height, Weight, BMI Height: '" Weight: lbs. oz. kg; 30.00 BMI Method: General Appearance: WD/WN, no apparent distress HEENT: PERRL/EOMI Neck: non-tender, full range of motion Hips: left hip non-tender, left hip normal inspection, left hip normal range of motion, left hip no evidence of injury, left hip pain Legs: left leg non-tender, left leg normal inspection, left leg normal range of motion, left leg abrasions (Minor abrasions along husain), left leg soft tissue tenderness Knees: left knee normal inspection, left knee normal range of motion, left knee no evidence of injury, left knee soft tissue tenderness (Absence of crepitus) Ankles: left ankle non-tender, left ankle normal inspection, left ankle normal range of motion, left ankle no evidence of injury Feet: left foot non-tender, left foot normal inspection, left foot normal range of motion, left foot no evidence of injury Neurologic/Tendon: normal sensation, normal motor functions Neurologic/Psychiatric: no motor/sensory deficits, alert, oriented x 3 Skin: normal color Progress/Results/Core Measures Results/Orders My Orders Orders - RAD HOWELL MD Knee 3 View Left (11/29/22 22:49) Pelvis With Left Hip 2-3 View (11/29/22 22:49) Tibia Fibula 2 View Left (11/29/22 22:49) Progress Progress Note : Progress Note 1. LEFT LEG CONTUSION: - XR LEFT HIP/ KNEE/ TIB-FIB: No fractures or dislocations seen. X-rays read by me. -Toradol IM stat in ER -Patient has PCP appointment in a few weeks, advised Ortho clinic follow-up if pain continues. Patient needs to call clinic for appointment -Advised staggering ibuprofen 600 mg every 6 hours and Tylenol 650 mg every 4 hours as needed for pain. Also advised [id number] Lidoderm patches for areas of pain. -The patient was seen in the ED, and treated appropriately to presentation at a specific point in time. Patient is informed that there is a possibility that disease and illness can evolve and change in acuity rapidly or slowly after patient is discharged from the ER. Precautionary advice given to the patient for immediate return to ER if symptoms worsen or do not resolve, and to seek emergency care sooner rather than later. Pt also advised on the importance of PCP follow up and compliance with management and follow up plan with PCP and/or specialist, as this is part of the management plan. Pt verbally expressed understanding. Departure Impression Primary Impression: Contusion of left lower leg, initial encounter Disposition: 01 HOME, SELF-CARE Condition: Stable Departure-Patient Inst. Referrals: MALENA KRAUS MD (PCP/Family) Primary Care Physician Patient Instructions: Minor Contusion ED, Contusion (DC), Taking Care of Bruises Add. Discharge Instructions: -Patient has PCP appointment in a few weeks, advised Ortho clinic follow-up if pain continues. Patient needs to call clinic for appointment -Advised staggering ibuprofen 600 mg every 6 hours and Tylenol 650 mg every 4 hours as needed for pain. Also advised [id number] Lidoderm patches for areas of pain. RAD HOWELL MD Nov 29, 2022 22:49
[2022-11-29] MEDS ORDERED: KETOROLAC 30 MG/ML VIAL IM ONE (23:30)
[2022-11-29 23:54] VITALS: BP 137/107
--- NOTE | 2022-11-30 07:53 | Diagnostic Imaging Report ---
INDICATION: Fall FINDINGS: AP pelvis and two-view left hip performed. No fracture, dislocation or acute appearing abnormality. IMPRESSION: No acute appearing abnormality. Dictated by: Dictated on workstation # [id number]
--- NOTE | 2022-11-30 07:57 | Diagnostic Imaging Report ---
INDICATION: Fall, pain FINDINGS: Two view left tibia-fibula showed no fracture, dislocation or acute appearing articular irregularity. IMPRESSION: Negative Dictated by: Dictated on workstation # [id number]
--- NOTE | 2022-11-30 08:06 | Diagnostic Imaging Report ---
INDICATION: Fall FINDINGS: 3 view left knee showed no fracture, dislocation or acute appearing articular irregularity. IMPRESSION: No acute appearing abnormality Dictated by: Dictated on workstation # [id number]
== END 2022-11-29 23:54 | disposition home or self-care (01) ==
LOC: EDUNIT# 22:30 → ER FS 22:34
DX: S80.12XA Contusion of left lower leg, initial encounter (principal); M25.552 Pain in left hip; M25.562 Pain in left knee; Z28.310 Unvaccinated for COVID-19; W17.1XXA Fall into storm drain or manhole, initial encounter; Y93.K1 Activity, walking an animal
CPT/HCPCS: 73502; 73562; 73590

== ENCOUNTER → 2023-06-04 | Outpatient (CLI) | payer MEDICAID ==
[2023-06-04 13:59] LABS: ABSOLUTE RETIC # 76 10e9/uL (24-90); BASOPHILS # (AUTO) 0.1 10^3/uL (0.0-0.1); BASOPHILS % (AUTO) 1 % (0-10); EOSINOPHILS # (AUTO) 0.1 10^3/uL (0.0-0.3); EOSINOPHILS % (AUTO) 1 % (0-10); HEMATOCRIT 45 % (35-52); HEMOGLOBIN 15.1 g/dL (11.5-16.0); LYMPHOCYTES # (AUTO) 2.1 10^3/uL (1.0-4.0); LYMPHOCYTES % (AUTO) 27 % (12-44); MEAN CORPUSCULAR HEMOGLOBIN 32 pg (25-34); MEAN CORPUSCULAR HGB CONC 33 g/dL (32-36); MEAN CORPUSCULAR VOLUME 95 fL (80-99); MEAN PLATELET VOLUME 11.7 fL (9.0-12.2); MONOCYTES # (AUTO) 0.6 10^3/uL (0.0-1.0); MONOCYTES % (AUTO) 7 % (0-12); NEUTROPHILS % (AUTO) 64 % (42-75); PLATELET COUNT 213 10^3/uL (130-400); WHITE BLOOD COUNT 7.8 10^3/uL (4.3-11.0)
[2023-06-04 14:54] LABS: BAND NEUTROPHILS 4 %; EOSINOPHILS % (MANUAL) 1 %; LYMPHOCYTES % (MANUAL) 29 %; METAMYELOCYTES % 1 %; MONOCYTES % (MANUAL) 3 %; NEUTROPHILS % (MANUAL) 61 %
[2023-06-04 14:55] LABS: ATYPICAL LYMPHOCYTES 1 %; PLATELET CLUMPS RARE; PLATELET ESTIMATE ADEQUATE; RBC MORPH NORMAL
== END ==
LOC: LABNPT 13:42
PROVIDERS: ATTEND Registered Nurse Emergency
DX: Z01.89 Encounter for other specified special examinations (principal)
CPT/HCPCS: 85007; 85027; 85045; 85055